=== PATIENT | male | born 1995 | race Hispanic/Latino ===

== ENCOUNTER 2024-09-16 13:32 | Emergency (ER) | payer SELFPAY ==
[2024-09-16] VITALS (39 sets, daily range): BP systolic 97–138; BP diastolic 52–94
[~2024-09-16] VITALS: Ht 162.6 cm; Wt 72.6 kg
[2024-09-16] MEDS ORDERED: METOCLOPRAMIDE HCL 10 MG/2 ML SDV IV ONE (13:45)
[2024-09-16] MEDS ORDERED: SODIUM CHLORIDE 0.9% 1,000 ML IV ONE ×2 (13:45→15:00)
[2024-09-16] MEDS ORDERED: DiphenhydrAMINE HCL 50 MG/ML SDV IV ONE (13:45)
[2024-09-16] MEDS ORDERED: KETOROLAC TROMETHAMINE 30 MG/ML SDV IV ONE (13:45)
[2024-09-16 14:49] LABS: BASO% 0.5 % (0-3); EOS% 0.7 % (0-8); HEMATOCRIT 44.7 % (39.0-50.0); HEMOGLOBIN 14.8 g/dl (14.0-18.0); IMMATURE GRANULOCYTES 0.9 % (0.0-5.0); LYMPH% 36.2 % (15-41); MEAN CELL VOLUME 87.6 fL CALC (80.0-100.0); MEAN CORPUSCULAR HGB CONC 33.1 g/dL CAL (32.0-36.0); MONO% 5.2 % (2-13); NEUT# 3.17 thou/uL (1.82-7.42); NEUT% 56.5 % (42-76); RED BLOOD COUNT 5.1 mill/uL (4.70-6.10); RED CELL DISTRI WIDTH 12.1 % (11.5-15.5)
[2024-09-16 14:52] LABS: ETHYL ALCOHOL 293 mg/dl (0-30)
[2024-09-16 14:53] LABS: ALBUMIN 4.6 g/dL (3.2-5.0); BILIRUBIN, TOTAL 0.4 mg/dL (0.2-1.3); POTASSIUM 4.1 mmol/l (3.5-5.1); TOTAL PROTEIN 7.8 g/dL (6.3-8.2)
== END 2024-09-16 23:08 | disposition home or self-care (01) | DRG 103 ==
LOC: ED 13:32
PROVIDERS: Family Medicine
DX: R51.9 Headache, unspecified (principal); F10.129 Alcohol abuse with intoxication, unspecified; Y90.8 Blood alcohol level of 240 mg/100 ml or more